=== PATIENT | female | born 1985 | race Caucasian/White ===

== ENCOUNTER 2024-04-01 15:49 | Outpatient (RCR) | payer OTHER, SELFPAY | END 2024-04-01 23:59 | disposition home or self-care (01) | LOC: RPT 15:49 | PROVIDERS: ATTENDING PHYSICIAN Obstetrics & Gynecology; FAMILY PHYSICIAN Internal Medicine | DX: M62.89 Other specified disorders of muscle (principal); R10.2 Pelvic and perineal pain; N30.10 Interstitial cystitis (chronic) without hematuria; Z73.6 Limitation of activities due to disability | CPT/HCPCS: 97161; 97530 ==

== ENCOUNTER 2024-06-10 16:20 | Outpatient (RCR) | payer OTHER, SELFPAY | END 2024-06-10 23:59 | disposition home or self-care (01) | LOC: RPT 16:20 | PROVIDERS: ATTENDING PHYSICIAN Obstetrics & Gynecology; FAMILY PHYSICIAN Internal Medicine | DX: M62.89 Other specified disorders of muscle (principal); R10.2 Pelvic and perineal pain; N30.10 Interstitial cystitis (chronic) without hematuria; Z73.6 Limitation of activities due to disability | CPT/HCPCS: 97110; 97140 ==